=== PATIENT | female | born 1990 | race Caucasian/White ===

== ENCOUNTER 2017-04-23 04:58 | Inpatient (IN) | payer OTHER ==
[2017-04-23] MEDS ORDERED: OXYTOCIN 20 UNITS in RINGER'S SOLUTION,LACTATED 1,000 ML IV ONE (05:25)
[2017-04-23] MEDS ORDERED: ceFAZolin SODIUM/DEXTROSE,ISO 2 GM/50 ML BAG IV ONE (05:25)
[2017-04-23] MEDS ORDERED: RINGER'S SOLUTION,LACTATED 1,000 ML IV PRN (05:25)
[2017-04-23] MEDS: RINGER'S SOLUTION,LACTATED 1,000 ML IV PRN ×2 (06:25→07:35)
[2017-04-23 08:43] LABS: Cocaine Ur Negative (NEGATIVE); Urine Barbiturate Negative (NEGATIVE); Urine Benzodiazepines Negative (NEGATIVE); Urine Opiates Negative (NEGATIVE); Urine PCP Negative (NEGATIVE); Urine THC Negative (NEGATIVE)
--- NOTE | 2017-04-23 09:37 | OR ---
Operative Report - Dictated Report Narrative: Indication: 27-year-old 3 para 2 at 39-2/7 weeks with prior section desires sterilization Pre Operative Diagnosis: 39-2/7 week intrauterine , prior section 2, desires sterilization via bilateral salpingectomy Post Operative Diagnosis: Same. Procedure: Repeat low transverse section. Abdominal scar revision - 15 cm. Bilateral salpingectomy Surgeon: Silvino Austin DO Director Of Education And Training: OR Staff Anesthesia: Spinal, TAP block Estimated Blood Loss: 50 mL Urine Output: 150 mL clear urine Fluids Replacement: 1700 mL Drains: Prater to gravity Surgical Complications: None Specimens: Placenta to freezer Findings: Female born at 0820 on 04/23/2016 in cephalic presentation with Apgars 9 and 9, weighing 2300 g. Mild omental adhesions to the anterior fundal wall of the uterus. Normal uterus, tubes, ovaries Technique: The patient was taken to the operating room and placed in dorsal supine position with a left lateral tilt. After adequate spinal anesthesia, prater catheter inserted, SCDs placed, and 2 g of Ancef given preoperatively, the previous scar was excised in an elliptical fashion and the abdominal cavity was entered using sharp and blunt dissection. Two rolled laps were placed in the pericolic gutters on either side of the uterus. A transverse incision was made in the lower uterine segment and extended laterally and upwardly with digital traction. Clear fluid was noted upon amniotomy. The was delivered easily. The infant was dried with warm blankets while we waited 1 minute before clamping the cord. The cord was clamped and cut and infant was handed off to awaiting wire basket maker. The placenta was allowed to deliver spontaneously. The uterus was cleared of clot and debris. Uterine incision was closed with 0 Vicryl using a running stitch. A second imbricating layer was placed. The left fallopian tube was to the left pelvic sidewall peritoneum.adhesions were taken down with sharp dissection and cautery. The mesosalpinx was coagulated with Kleppinger's and across the tube approximately 2 cm from the cornual region. The tube was excised and sent to pathology. The right fallopian tube was identified followed out to its fimbriated end. The mesosalpinx was coagulated with Kleppinger's. The tube was excised and sent to pathology. Excellent hemostasis was noted. The rolled laps were removed from the abdominal cavitiy. The peritoneum was closed with a running 3-0 Monocryl. The same suture was used to approximate the rectus and pyramidalis muscles. The fascia was closed with a running 0 Vicryl. The subcutaneous layer was closed with a running 3-0 Monocryl. The same suture was used to approximate the subdermal layer. The skin was closed with a running 4-0 Monocryl and Dermabond. Sponge, lap, needle, and instrument count were correct x 2. Disposition: To post anesthesia care unit in good condition History for MU Definition: * The number of deliveries resulting in a live the patient experienced prior to current hospitalization * The previous delivery of live twins or any live multiple gestation is considered one live event. *If primagravida or nulliparous is documented select zero for the number of previous live births. Live Events: 2
[2017-04-23] MEDS ORDERED: BISACODYL 10 MG SUPP.RECT RC PRN (09:41)
[2017-04-23] MEDS ORDERED: ONDANSETRON HCL/PF 2 MG/ML VIAL IV PRN (09:41)
[2017-04-23] MEDS ORDERED: hydrOXYzine HCL 25 MG TABLET PO PRN (09:41)
[2017-04-23] MEDS ORDERED: SIMETHICONE 80 MG TAB.CHEW PO PRN (09:41)
[2017-04-23] MEDS ORDERED: SENNOSIDES 8.6 MG TABLET PO PRN (09:41)
--- NOTE | 2017-04-23 09:42 | OR ---
Anesthesia Procedure Note - Anesthesia Procedure Note Date of Service: 04/23/17 Narrative: Vital Signs - Last Taken Temp 36.4 C L 04/23/17 09:25 Pulse 71 04/23/17 09:35 Resp 16 04/23/17 09:35 BP 131/51 04/23/17 09:35 Pulse Ox 98 04/23/17 09:35 O2 Oxygen Delivery Method Room Air 04/23/17 09:41 ANESTHESIA PROCEDURE NOTE Date of Procedure: 04/23/2017 Time of procedure: 9:30 AM. Performed by: CHERYLE Galicia CRNA, MSN Cover Cutter: Sheryl Leslie RN. Preprocedure diagnosis: Post section pain. Post procedure diagnosis: Same. Procedure: Bilateral TAP block Indications: Post section pain relief. Findings: See below. Details of the procedure: The patient was brought to PACU and placed in the supine position. The patient was prepped with chlorhexidine and using ultrasound guidance the 3 abdominal muscular planes were identified and lidocaine 1% was infiltrated to the skin of the intended injection site. Under ultrasound guidance the the internal oblique and transverse this abdominis muscle layers were approached until the tip of the block needle rested in the plane between the muscles. 25 mL bupivacaine 0.5% with 1-200,000 epinephrine was injected and the procedure was repeated on the other side. Please see radiology/ultrasound report for details and images of the procedure. EBL: 0 Fluids: N/A. Specimen: N/A. Post procedure condition: The patient tolerated the procedure well. No complications were noted. Thank you for this consultation. Jamie Hoyt CRNA, CHERYLE, MSN
[2017-04-23] MEDS: IBUPROFEN 800 MG TABLET PO PRN ×2 (10:17→17:46)
[2017-04-23] MEDS: oxyCODONE HCL/ACETAMINOPHEN 1 TAB TABLET PO PRN ×4 (10:18→20:49)
[2017-04-23] MEDS: ENOXAPARIN SODIUM 40 MG/0.4 ML SYRG SC SCH (16:18)
[2017-04-23] MEDS: ASCORBIC ACID 500 MG TABLET PO SCH (20:53)
[2017-04-23] MEDS: FERROUS SULFATE 325 MG TABLET PO SCH (20:53)
[2017-04-23] MEDS: DOCUSATE SODIUM 100 MG CAPSULE PO SCH (20:54)
[2017-04-24] MEDS: IBUPROFEN 800 MG TABLET PO PRN ×3 (00:24→14:57)
[2017-04-24] MEDS: oxyCODONE HCL/ACETAMINOPHEN 1 TAB TABLET PO PRN ×6 (02:10→23:13)
[2017-04-24] MEDS: ASCORBIC ACID 500 MG TABLET PO SCH (08:59)
[2017-04-24] MEDS: PRENATAL VITS96/IRON FUM/FOLIC 1 TAB TABLET PO SCH (08:59)
[2017-04-24] MEDS: DOCUSATE SODIUM 100 MG CAPSULE PO SCH (08:59)
[2017-04-24] MEDS: FERROUS SULFATE 325 MG TABLET PO SCH (08:59)
--- NOTE | 2017-04-24 09:00 | PN ---
Subjective - Date and Time Seen Date: 04/24/17 Time: 08:58 Objective - Vitals Vitals: Last Vital Signs Temp 36.7 C 04/24/17 08:31 Pulse 75 04/24/17 08:31 Resp 18 04/24/17 08:31 BP 123/55 04/24/17 08:31 Pulse Ox 98 04/24/17 08:31 Patient denies complaints. Tolerating regular diet. Ambulating without difficulty. Pain well controlled. Lochia wnl. Morning blood sugars pending at this time Abdomen - soft, appropriately tender Incision - clean, dry, intact Uterus - firm, at umbilicus -1 No calf tenderness Impression: Post op day #1 s/p repeat section. Bilateral salpingectomy. Abdominal scar revision. Gestational diabetes-improving. Plan: Continue routine post-operative/ care Cauti Physician Documentation - Urinary Catheter Management Urethral (Nickerson) Date of Insertion: 04/23/17 Time of Insertion: 08:10 Date of Removal: 04/23/17 Time of Removal: 20:00
[2017-04-24] MEDS: ENOXAPARIN SODIUM 40 MG/0.4 ML SYRG SC SCH (18:33)
[2017-04-25] MEDS: IBUPROFEN 800 MG TABLET PO PRN ×3 (02:50→21:00)
[2017-04-25] MEDS: oxyCODONE HCL/ACETAMINOPHEN 1 TAB TABLET PO PRN ×5 (03:12→22:57)
[2017-04-25] MEDS: FERROUS SULFATE 325 MG TABLET PO SCH ×4 (03:13→21:00)
[2017-04-25] MEDS: DOCUSATE SODIUM 100 MG CAPSULE PO SCH ×4 (03:13→21:00)
[2017-04-25] MEDS: ASCORBIC ACID 500 MG TABLET PO SCH ×4 (03:14→21:00)
[2017-04-25] MEDS: PRENATAL VITS96/IRON FUM/FOLIC 1 TAB TABLET PO SCH ×2 (07:34→08:06)
--- NOTE | 2017-04-25 12:26 | PN ---
Subjective - Date and Time Seen Date: 04/25/17 Time: 12:25 Objective - Vitals Vitals: Last Vital Signs Temp 36.9 C 04/25/17 07:52 Pulse 61 04/25/17 07:52 Resp 16 04/25/17 07:52 BP 104/38 04/25/17 07:52 Pulse Ox 97 04/25/17 07:52 Patient denies complaints. Ambulating well. Tolerating regular diet. Pain well controlled. Lochia wnl. Abdomen - soft, appropriately tender Incision - clean, dry, intact Uterus - firm, at umbilicus -2 No calf tenderness Impression: Post op day #2 s/p repeat section. Abdominal scar revision. Bilateral salpingectomy Plan: Continue routine post-operative/ care Cauti Physician Documentation - Urinary Catheter Management Urethral (Nickerson) Date of Insertion: 04/23/17 Time of Insertion: 08:10 Date of Removal: 04/23/17 Time of Removal: 20:00
[2017-04-25] MEDS: ENOXAPARIN SODIUM 40 MG/0.4 ML SYRG SC SCH (17:29)
[2017-04-26] MEDS: oxyCODONE HCL/ACETAMINOPHEN 1 TAB TABLET PO PRN ×2 (01:45→07:48)
[2017-04-26] MEDS: IBUPROFEN 800 MG TABLET PO PRN (07:48)
[2017-04-26 08:43] VITALS: BP 111/60
--- NOTE | 2017-04-26 10:27 | PN ---
Subjective - Date and Time Seen Date: 04/26/17 Time: 10:26 Objective - Vitals Vitals: Last Vital Signs Temp 36.7 C 04/26/17 08:33 Pulse 73 04/26/17 08:33 Resp 18 04/26/17 08:33 BP 111/60 04/26/17 08:33 Pulse Ox 98 04/26/17 08:33 Patient denies complaints. Ambulating without difficulty. Tolerating regular diet. Pain well controlled. Lochia wnl. Abdomen - soft, appropriately tender Incision - clean, dry, intact Uterus - firm, at umbilicus -3 No calf tenderness Impression: Post op day #3 s/p repeat section. Bilateral salpingectomy. Abdominal scar revision Plan: Routine discharge instructions Cauti Physician Documentation - Urinary Catheter Management Urethral (Nickerson) Date of Insertion: 04/23/17 Time of Insertion: 08:10 Date of Removal: 04/23/17 Time of Removal: 20:00
== END 2017-04-26 11:35 | disposition home or self-care (01) | DRG 766 ==
LOC: MS 04:58
PROVIDERS: ADMIT Obstetrics & Gynecology; ATTEND Obstetrics & Gynecology
PROC: 0UB70ZZ Excision of Bilateral Fallopian Tubes, Open Approach (ICD-10-PCS; 2017-04-23)
PROC: 4A1HXCZ Monitoring of Products of Conception, Cardiac Rate, External Approach (ICD-10-PCS; 2017-04-23)
PROC: 10D00Z1 Extraction of Products of Conception, Low, Open Approach (ICD-10-PCS; principal; 2017-04-23 08:00)
DX: O24.420 Gestational diabetes mellitus in childbirth, diet controlled (principal); O99.344 Other mental disorders complicating childbirth; O34.211 Maternal care for low transverse scar from previous cesarean delivery; F41.9 Anxiety disorder, unspecified; Z30.2 Encounter for sterilization; Z3A.39 39 weeks gestation of pregnancy; Z37.0 Single live birth

== ENCOUNTER 2017-06-16 21:07 | Emergency (ER) | payer OTHER ==
[2017-06-16] MEDS ORDERED: KETOROLAC TROMETHAMINE 60 MG/2 ML VIAL IM ONE ×2 (22:29→22:36)
[2017-06-16] MEDS ORDERED: AMOXICILLIN TRIHYDRATE 250 MG CAPSULE PO ONE ×2 (22:37→22:45)
--- NOTE | 2017-06-16 22:38 | ERNOTE ---
ENT HPI Presenting Symptoms: other - left ear pain Time Seen by Provider: 06/16/17 22:22 Source: patient Exam Limitations: no limitations - Immun/Allergies/Home Medications Immunizations: IMMUNIZATION HX Immunizations Up to Date Yes History of Influenza Vaccine Yes Hx Pneumococcal Vaccination No Allergies/Adverse Reactions: Allergies Allergy/AdvReac Type Severity Reaction Status Date / Time No Known Allergies Allergy Verified 03/17/17 23:58 Home Medications: HOME MEDICATIONS Ascorbic Acid [Vitamin C] 1,000 mg PO DAILY 04/23/17 [Last Taken Unknown] Ferrous Sulfate [Iron] 325 mg PO DAILY 04/23/17 [Last Taken Unknown] Hydroxyzine HCl 50 mg PO DAILY 04/23/17 [Last Taken Unknown] Vits96/Iron Fum/Folic [ S] 1 tab PO DAILY 04/23/17 [Last Taken Unknown] Ibuprofen [Motrin] 200 - 800 mg PO Q6H PRN #100 tab 04/25/17 [Last Taken Unknown ] oxyCODONE HCL/ACETAMINOPHEN [Percocet 5 MG/325 MG] 1 tab PO Q4H PRN #20 tablet 04/25/17 [Last Taken Unknown] Amoxicillin 875 mg PO BID #20 tablet 06/16/17 [Last Taken Unknown] Neomycin/Polymyxin B Sulf/Hc [Oeegkiqb-Ymrpbqaxy-Zk Ear Soln] 4 drop LEFT EAR TID #1 bottle 06/16/17 [Last Taken Unknown] - History of Present Illness Narrative: Pt has had multiple ear infections throughout her life. today she began to have left ear pain and tonight she began to have bleeding from her ear. Severity: Present: moderate ENT Location: Present: ear (L) Prearrival Treatment: Present: no prearrival treatment Modifying Factors - Improves: Reports: nothing Associated Symptoms - ENT: Reports: fever, cough Prior Treament: Reports: similar symptoms before Review of Systems - Review of Systems Constitutional: Present: recent illness. Absent: fever EYE: Present: no symptoms reported ENT: Present: See HPI Respiratory: Present: cough. Absent: wheezing Cardiology: Absent: chest pain Gastrointestinal/Abdominal: Absent: nausea Genitourinary: Present: no symptoms reported Musculoskeletal: Present: no symptoms reported Skin: Present: no symptoms reported Neurological: Present: no symptoms reported Endocrine: Present: no symptoms reported Hematologic/Lymphatic: Present: no symptoms reported Psych: Present: no symptoms reported - Patient's Past Medical History Patient History - Medical: ADHD, Anxiety, Depression, Other - recurrent otitis media Patient History - Cardiac/Respiratory: No pertinent hx Patient History - Cancer: No Hx of Cancer Patient History - Surgical Procedures: , Ear Tubes, Other Patient History - Other: None LMP (females 10-50): 1 month - Social History Living Situations: spouse Abuse History: No History of abuse Psych History: No pertinent hx Smoking Status: Never smoker Have you smoked in the past 12 months: No Do you dip or chew tobacco: No Patient requests Smoking Cessation Consult: No Initiate information on Smoking Cessation: No Alcohol Use: none Drug Use: none - Immunizations Immunizations Up to Date: Yes Hx Pneumococcal Vaccination: No History of Influenza Vaccine: Yes Physical Exam - Physical Exam General Appearance: Present: wd/wn, alert, mild distress Head Exam: Present: normal inspection, no evidence of injury Eye Exam: Normal inspection: bilateral Ears, Nose, Throat: Present: abnormal TM (L) - red, bulging, small amount of blood in EAC no source able to be seen Neck: Present: normal inspection, nontender Respiratory: Present: no respiratory distress, no accessory muscle use Extremity Exam: Present: normal inspection Neurological Exam: Present: alert, oriented Skin Exam: Present: normal color, warm/dry Lymphatic Exam: Present: no adenopathy ED Progress - Vital Signs Patient's Vital Signs:: I have reviewed the patient's vital signs. Vital Signs: Vital Signs 06/16/17 21:14 Temperature 36.5 C Pulse Rate 90 Respiratory 17 Rate Blood Pressure 153/74 O2 Sat by Pulse 99 Oximetry - Progress/Reassessment Chief Complaint: Earache Departure Clinical Impression: Otitis media Qualifiers: Otitis media type: suppurative Chronicity: acute Laterality: right Recurrence: recurrent Spontaneous tympanic membrane rupture: with spontaneous rupture Qualified Code(s): H66.014 - Acute suppurative otitis media with spontaneous rupture of ear drum, recurrent, right ear - Departure Disposition: Home self-care Condition: Good Instructions: Otitis Media, Adult, [id number] Referrals: Kristofer Acosta DO [Primary Care Provider] - Prescriptions: Amoxicillin 875 mg PO BID #20 tablet Neomycin/Polymyxin B Sulf/Hc [Kwrzgkzo-Zgtsjqvpi-Cy Ear Soln] 4 drop LEFT EAR TID #1 bottle
[2017-06-16] MEDS ORDERED: AMOXICILLIN TRIHYDRATE 250 MG CAPSULE ONE (22:39)
[2017-06-16 23:26] VITALS: BP 113/72
== END 2017-06-16 23:56 | disposition home or self-care (01) ==
LOC: ER 21:07
DX: H66.014 Acute suppurative otitis media with spontaneous rupture of ear drum, recurrent, right ear (principal)